=== PATIENT | male | born 1960 | race Caucasian/White ===

== ENCOUNTER 2021-12-19 15:54 | Emergency (ER) | payer BC ==
[~2021-12-19] VITALS: Ht 172.7 cm; Wt 77.0 kg
[2021-12-19] MEDS ORDERED: CIPR500S2 PO (17:35)
--- NOTE | 2021-12-19 17:36 | PHYS DOC ---
General Adult EDM: Chief Complaint: URINARY RETENTION HPI: HPI: Patient is a 61-year-old male that presents with a chief complaint of difficulty urinating. Patient states symptoms initially started this past Thursday. Patient was evaluated at an outside ER and had a Lomeli catheter placed. Patient saw his primary care physician on Thursday and had Lomeli removed. Patient states since then he is difficulty urinating has returned. Patient states he has some so she had his suprapubic discomfort but he is still able to void. Patient has been taking Flomax as prescribed. Patient is prior to arrival he talked to his primary care physician who referred patient to the ER to get a bladder scan. Patient's bladder scan resulted at 536. Discussed Lomeli placement with the patient he is declining at this time. Patient states he is just now recovering from hematuria related to placement of last Lomeli. Patient states last ER had difficulty placing the Lomeli catheter--multiple attempts eventually obtaining it with a coud. Review of Systems: Review of Systems: Constitutional: Denies fever or chills Eyes: Denies change in visual acuity HENT: Denies nasal congestion or sore throat Respiratory: Denies cough or shortness of breath Cardiovascular: Denies chest pain or edema GI: Denies abdominal pain, nausea, vomiting, bloody stools or diarrhea : Denies dysuria positive difficulty urination. Positive urinary retention Musculoskeletal: Denies back pain or joint pain Integument: Denies rash Neurologic: Denies headache, focal weakness or sensory changes Endocrine: Denies polyuria or polydipsia Lymphatic: Denies swollen glands Psychiatric: Denies depression or anxiety Physical Exam: PE: Constitutional: Well developed, well nourished, no acute distress, non-toxic appearance. [] HENT: Normocephalic, atraumatic, bilateral external ears normal, oropharynx moist, no oral exudates, nose normal. [] Eyes: PERRLA, EOMI, conjunctiva normal, no discharge. [] Neck: Normal range of motion, no tenderness, supple, no stridor. [] Cardiovascular:Heart rate regular rhythm, no murmur [] Lungs & Thorax: Bilateral breath sounds clear to auscultation [] Abdomen: Bowel sounds normal, soft, no tenderness, no masses, no pulsatile masses. [] Skin: Warm, dry, no erythema, no rash. [] Back: No tenderness, no CVA tenderness. [] Extremities: No tenderness, no cyanosis, no clubbing, ROM intact, no edema. [] Neurologic: Alert and oriented X 3, normal motor function, normal sensory function, no focal deficits noted. [] Psychologic: Affect normal, judgement normal, mood normal. [] EKG: EKG: [] Radiology/Procedures: Radiology/Procedures: [] Heart Score: C/O Chest Pain: N/A Risk Factors: Risk Factors: DM, Current or recent (<one month) smoker, HTN, HLP, family history of CAD, obesity. Risk Scores: Score 0 - 3: 2.5% MACE over next 6 weeks - Discharge Home Score 4 - 6: 20.3% MACE over next 6 weeks - Admit for Clinical Observation Score 7 - 10: 72.7% MACE over next 6 weeks - Early Invasive Strategies Course & Med Decision Making: Course & Med Decision Making Pertinent Labs and Imaging studies reviewed. (See chart for details) [] Patient does not want a Lomeli catheter. We will place patient on Cipro to treat possible prostatitis causing his difficulty to urinate. Patient is to continue his Flomax. Patient has has appointment with urologist pending. Patient advised to return to the ER if he is unable to urinate. Patient will need to return to the ER and have a Lomeli catheter placed at that time. [place] Disclaimer: Kofi Disclaimer: This electronic medical record was generated, in whole or in part, using a voice recognition dictation system. Departure Departure: Impression: Primary Impression: Urinary retention Additional Impression: Prostatitis Disposition: HOME / SELF CARE / HOMELESS Condition: STABLE Referrals: OTILIA THOMPSON MD (PCP) Patient Instructions: Urinary Retention, Acute, Male Scripts Ciprofloxacin (CIPRO) 500 Mg/5 Ml Denise..rec 500 MG PO BID, #20 [facility] Prov: JESSA HERNANDEZ I DO 12/19/21 JESSA HERNANDEZ I DO Dec 19, 2021 17:36
[2021-12-19 17:46] LABS: BACTERIA,URINE 0 /HPF (0-FEW); CLARITY,URINE CLEAR; COLOR,URINE YELLOW; GLUCOSE,URINE NEG (NEG); NITRITE,URINE NEG (NEG); SQUAMOUS EPITHELIAL CELL,UR FEW /LPF; UROBILINOGEN,URINE 0.2 mg/dL (0.2 mg/dL)
[2021-12-19 18:22] VITALS: BP 135/72
== END 2021-12-19 17:40 | disposition home or self-care (01) ==
LOC: ER 15:54
DX: N41.9 Inflammatory disease of prostate, unspecified (principal); R33.9 Retention of urine, unspecified
CPT/HCPCS: 81001; 99284

== ENCOUNTER 2021-12-20 16:39 | Emergency (ER) | payer BC ==
[~2021-12-20] VITALS: Ht 172.7 cm; Wt 80.2 kg
[~2021-12-20 16:39] MED LIST: CIPR500S2 PO
--- NOTE | 2021-12-20 19:41 | PHYS DOC ---
Past History Past Medical History: Kidney Stones (MIKE RANDOLPH) Past Surgical History: No Surgical History (MIKE RANDOLPH) Alcohol Use: None (MIKE RANDOLPH) General Adult EDM: Chief Complaint: URINARY RETENTION HPI: HPI: Patient is a 61 year old male who presents with difficulty urinating and suprapubic pain. Patient states that last week, he was on his way home from a trip to [place] when he began having difficulty urinating and suprapubic pain. He was evaluated in the emergency department. At that time, they discovered that his prostate was enlarged and placed a coud catheter. CT imaging also confirmed that he does still have a renal stone in each kidney. They were nonobstructing and are not causing him pain. Patient reports that they had difficulty placing a regular Lomeli catheter, so they had to use "the small one" (a coud). He was instructed to have the catheter removed after 2 days. He visited his primary care provider on Thursday morning, which was 2 days ago. At that time, he had been taking Flomax for a few days. His primary care prov ider, Dr. Thompson, prescribed him antibiotics for possible prostate infection causing the enlargement and obstruction. Dr. Thompson informed the patient that a urologist visits his office every other week. Patient has not received a call back informing him he has an appointment with the urologist as of yet, but his primary care doctor assured him he would be seen. Since the catheter has been removed, patient states that he is able to urinate a minimal amount about every 1/2 hour. He has decreased his oral intake of fluids significantly since having the catheter removed. Patient reports he typically drinks 8+ glasses of water per day, but has decreased to 1-2 glasses. He states his hematuria after having the catheter removed has resolved. Patient denies fever, chills, generalized weakness, dysuria, N/V/D. Patient states he was seen here in the emergency department yesterday and discussed replacement of Lomeli catheter, but he declined at that time. Today he states he is so uncomfortable that he would like the coud placed. (MIKE RANDOLPH) Review of Systems: Review of Systems: Constitutional: See HPI Eyes: Denies change in visual acuity, visual field deficits or discharge HENT: Denies ear pain, nasal congestion or sore throat Respiratory: Denies cough or shortness of breath Cardiovascular: Denies chest pain, palpitations or edema GI: See HPI : See HPI Musculoskeletal: Denies back pain or joint pain Integument: Denies rash or other skin lesion Neurologic: Denies headache, focal weakness or sensory changes (MIKE RANDOLPH) Allergies: Allergies: Allergies Coded Allergies Type Severity Reaction Last Updated Verified No Known Drug Allergies 12/20/21 No (MIKE RANDOLPH) Physical Exam: PE: Constitutional: Well developed, well nourished, no acute distress, non-toxic appearance. HENT: Normocephalic, atraumatic, bilateral external ears normal, nose normal. Eyes: EOMI, conjunctiva normal, no discharge. Neck: Normal range of motion, no stridor. Abdomen: Bowel sounds normal, soft, suprapubic tenderness without rebound or guarding, no masses, no pulsatile masses. Skin: Warm, dry, no erythema, no rash. Extremities: No cyanosis, no clubbing, ROM intact, no edema. Neurologic: Alert and oriented x4, steady and symmetrical upright gait, no focal deficits noted. (MIKE RANDOLPH) Current Patient Data: Labs: Laboratory Tests Test 12/20/21 19:57 Urine Collection Type Unknown Urine Color Yellow Urine Clarity Clear Urine pH 6.0 Urine Specific [place] 1.025 Urine Protein Neg (NEG-TRACE) Urine Glucose (UA) Neg mg/dL (NEG) Urine Ketones (Stick) Neg mg/dL (NEG) Urine Blood Small (NEG) Urine Nitrite Neg (NEG) Urine Bilirubin Neg (NEG) Urine Urobilinogen Dipstick 0.2 mg/dL (0.2 mg/dL) Urine Leukocyte Esterase Neg (NEG) Urine RBC 6-10 /HPF (0-2) Urine WBC 0 /HPF (0-4) Urine Squamous Epithelial Cells Few /LPF Urine Transitional Epithelial Cells /LPF Urine Bacteria Few /HPF (0-FEW) Urine Mucus Slight /LPF Vital Signs: Vital Signs Date Time Temp Pulse Resp B/P (MAP) Pulse Ox O2 Delivery O2 Flow Rate FiO2 12/20/21 16:39 97.7 82 18 160/66 (97) 98 Room Air (MIKE RANDOLPH) Radiology/Procedures: Radiology/Procedures: >800cc urine on bladder scan (MIKE RANDOLPH) Heart Score: C/O Chest Pain: No (MIKE RANDOLPH) Course & Med Decision Making: Course & Med Decision Making Pertinent Labs and Imaging studies reviewed. (See chart for details) Patient is a 61-year-old male who returns to the emergency department today after refusing urinary catheter placement yesterday. He does request urinary catheter placement today secondary to his increased suprapubic pain and lack of ability to urinate. Patient was given a 14 coud with use of Glydo. Total of 1000cc urine expelled in catheter bag prior to discharge. Had a discussion with the patient regarding necessity of urology follow-up. Advised patient to continue taking antibiotics and Flomax prescribed by his primary care provider. Patient should call his PCP on Thursday morning to obtain a urology appointment with the provider who visits his PCPs office. If he is unable to get an appointment with his urologist this week, he is instructed to call Dr. Blackubrn, who was contacted formation is included on the discharge paperwork. All of the patient's questions were answered. He expresses gratitude for the use of Glydo during catheter placement, as his first catheter placement was very uncomfortable. Patient understands and is agreeable to discharge plan. (MIKE RANDOLPH) Course & Med Decision Making Did not see or evaluate patient. Did not discuss patient with PA. Generally agree with PAs work-up and disposition per note (HILARY MCGREGOR MD) Dragon Disclaimer: Dragon Disclaimer: This electronic medical record was generated, in whole or in part, using a voice recognition dictation system. (MIKE RANDOLPH) Departure Departure: Impression: Primary Impression: Hyperplasia of prostate with urinary obstruction Additional Impression: Urinary catheter in place Disposition: HOME / SELF CARE / HOMELESS Condition: IMPROVED Referrals: OTILIA THOMPSON MD (PCP) ERAN BLACKBURN MD Patient Instructions: Lomeli Catheter Care, Adult Additional Instructions: EMERGENCY DEPARTMENT GENERAL DISCHARGE INSTRUCTIONS Thank you for coming to [facility] (ED) today and trusting us with you care. We trust that you had a positive experience in our Emergency Department. If you wish to speak to the department management, you may call the director at [phone]. YOUR FOLLOW UP INSTRUCTIONS ARE FOLLOWS: 1. Follow up with your primary care doctor. If you do not have a primary doctor, please ask for a resource list of physicians or clinics that may be able to assist you with follow up care. 2. The emergency provider has interpreted your imaging studies, if any were ordered. The radiology youth career specialist also reviewed them. If there is a change in the findings, you will be notified in 48 hours when at all possible. 3. If a lab test or culture has been done, your results will be reviewed and you will be notified if you need a change in treatment. 4. Follow instructions verbalized to you and refer to the printouts if needed. ADDITIONAL INSTRUCTIONS AND INFORMATION: 1. Your care today has been supervised by a physician who is specially trained in emergency care. Many problems require more than one evaluation for a complete diagnosis and treatment. We recommend that you schedule your follow up appointment as recommended to ensure complete treatment of you illness or injury. If you are unable to obtain follow up care and continue to have a problem, or if your condition worsens, we recommend that you return to the ED. 2. We are not able to safely determine your condition over the phone nor are we able to give sound medical advice over the phone. For these safety reasons, if you call for medical advice we will ask you to come to the ED for further lavinia luation. 3. If you have any questions regarding these discharge instructions please call the ED at [phone]. SAFETY INFORMATION: In the interest of safety, wellness, and injury prevention; we encourage you to wear your seat belt, if you smoke; quite smoking, and we encourage family to use a protective helmet for bicycling and other sporting events that present an increased risk for head injury. IF YOUR SYMPTOMS WORSEN OR NEW SYMPTOMS DEVELOP, OR YOU HAVE CONCERNS ABOUT YOUR CONDITION; OR IF YOUR CONDITION WORSENS WHILE YOU ARE WAITING FOR YOUR FOLLOW UP APPOINTMENT; EITHER CONTACT YOUR PRIMARY CARE DOCTOR, THE PHYSICIAN WHOSE NAME AND NUMBER YOU WERE GIVEN, OR RETURN TO THE ED IMMEDIATELY. MIKE RANDOLPH Dec 20, 2021 19:41 HILARY MCGREGOR MD Dec 20, 2021 22:26
[2021-12-20] MEDS ORDERED: LIDOCAINE 2% JELLY 6ML IN APPLICATOR. MM ONE (20:00)
[2021-12-20 20:41] LABS: CLARITY,URINE CLEAR; COLOR,URINE YELLOW; GLUCOSE,URINE NEG (NEG)
[2021-12-20 20:42] LABS: BACTERIA,URINE FEW /HPF (0-FEW); NITRITE,URINE NEG (NEG); SQUAMOUS EPITHELIAL CELL,UR FEW /LPF; UROBILINOGEN,URINE 0.2 mg/dL (0.2 mg/dL); WBC,URINE 0 /HPF (0-4)
[2021-12-20 21:40] VITALS: BP 148/68
== END 2021-12-20 21:48 | disposition home or self-care (01) ==
LOC: ER 16:39
DX: N40.1 Benign prostatic hyperplasia with lower urinary tract symptoms (principal); N13.8 Other obstructive and reflux uropathy; Z87.442 Personal history of urinary calculi
CPT/HCPCS: 51702; 81001; 99284

== ENCOUNTER 2021-12-23 09:17 | Emergency (ER) | payer BC ==
[~2021-12-23] VITALS: Ht 172.7 cm; Wt 80.0 kg
[2021-12-23 10:02] VITALS: BP 142/80
--- NOTE | 2021-12-23 10:17 | PHYS DOC ---
Past History Past Medical History: Kidney Stones (MINH SERRANO APRN) Past Surgical History: No Surgical History (MINH SERRANO APRN) Alcohol Use: None (MINH SERRANO APRN) General Adult EDM: Chief Complaint: URINE CATHETER PROBLEM HPI: HPI: Patient is a 61-year-old male who presents to the emergency department for urinary catheter change. Patient reports that 1 week ago he had a CT scan of his abdomen and pelvis due to inability to urinate which showed an enlarged prostate and bilateral kidney stones within the kidney that were nonobstructing. He reports that following that, a catheter was placed and he was to have the catheter removed in 2 days. He did have the catheter removed after 2 days but presented to the emergency department on and Thursday. On Thursday patient did agree to have a Lomeli placed and did have urine output. Patient reports that he followed up with his primary care provider, Dr. Thompson this morning because he was concerned that there may be an issue with his leg bag. Patient reports that there is urine in his tube but it will not flow into his leg bag. He reports that he wants his leg bag replaced. He states that Dr. Thompson in the office this morning "played with" the connection between the tube in the leg bag and the urine did not drain into the leg bag so he believes that there is an issue with the connection between the 2. Patient reports that he also got a PSA checked in the office today. He was discharged home 1 week ago with Flomax and Cipro. Patient reports that he continues to take these medications. He states that he has a urology appointment on Thursday. Patient denies hematuria, dysuria, fever, nausea, vomiting, abdominal pain, flank pain. (MINH SERRANO APRN) Review of Systems: Review of Systems: Constitutional: See HPI GI: See HPI : See HPI Musculoskeletal: See HPI (MINH SERRANO APRN) Allergies: Allergies: Allergies Coded Allergies Type Severity Reaction Last Updated Verified No Known Drug Allergies 12/23/21 No (MINH SERRANO APRN) Physical Exam: PE: Constitutional: Well developed, well nourished, no acute distress, non-toxic appearance. [] HENT: Normocephalic, atraumatic, bilateral external ears normal, oropharynx moist, no oral exudates, nose normal. [] Eyes: PERRL, EOMI, conjunctiva normal, no discharge. [] Neck: Normal range of motion, no stridor Cardiovascular:Heart rate regular rhythm, no murmur [] Lungs & Thorax: Bilateral breath sounds clear to auscultation [] Abdomen: Bowel sounds normal, soft, no tenderness,no guarding, no rigidity, no masses, no pulsatile masses. [] Skin: Warm, dry, no erythema, no rash. [] Back: No tenderness, no CVA tenderness. [] Extremities: No tenderness, no cyanosis, no clubbing, ROM intact, no edema. [] Neurologic: Alert and oriented X 3, normal motor function, normal sensory function, no focal deficits noted. [] Psychologic: Affect normal, judgement normal, mood normal. [] (MINH SERRANO APRN) EKG: EKG: [] (MINH SERRANO APRN) Radiology/Procedures: Radiology/Procedures: [] (MINH SERRANO APRN) Heart Score: C/O Chest Pain: N/A Risk Factors: Risk Factors: DM, Current or recent (<one month) smoker, HTN, HLP, family history of CAD, obesity. Risk Scores: Score 0 - 3: 2.5% MACE over next 6 weeks - Discharge Home Score 4 - 6: 20.3% MACE over next 6 weeks - Admit for Clinical Observation Score 7 - 10: 72.7% MACE over next 6 weeks - Early Invasive Strategies (MINH SERRANO APRN) Course & Med Decision Making: Course & Med Decision Making Pertinent Labs and Imaging studies reviewed. (See chart for details) Patient presents for urine catheter change. Patient reports that there is urine in his tube but it will not flow into his leg bag. He reports that he wants his leg bag replaced. He states that Dr. Thompson in the office this morning "played with" the connection between the tube in the leg bag and the urine did not drain into the leg bag so he believes that there is an issue with the connection between the 2. Patient does not have any fevers, urinary complaints, nausea/vomiting or abdominal pain. I bladder scanned patient and had only 36 mils of urine noted. Patient does have urine noted in his tube but as patient stated, it is not flowing into his leg bag. The tube was flushed in the emergency department and it did start to drain but had to manipulate with connection between the tube and the leg bag for it to drain to gravity. Maria Luisa cornell's leg bag was replaced in the emergency department today. He has an appointment with urology on Thursday. I advised him to make sure that he keeps this appointment and continue to take his Cipro and Flomax. I told patient that if he continues to have issues with this catheter then he should return to the emergency department or go to [facility] where they do have urology coverage. I discussed with patient all findings and diagnostic testing as well as the need to follow-up with PCP for further evaluation and treatment or return to the ER if any new or worsening symptoms. Strict return precautions were also discussed at length. Patient voiced understanding and agreement with the plan. Patient is hemodynamically stable at the time of disposition. (MINH SERRANO APRN) Course & Med Decision Making Did not see or evaluate patient. Did not discuss patient with INTERMODAL TRUCK DRIVER. Generally agree with INTERMODAL TRUCK DRIVER's work-up and disposition per note (HILARY MCGREGOR MD) Dragon Disclaimer: Dragon Disclaimer: This electronic medical record was generated, in whole or in part, using a voice recognition dictation system. (MINH SERRANO APRN) Departure Departure: Impression: Primary Impression: Urinary catheter change required Disposition: HOME / SELF CARE / HOMELESS Condition: GOOD Referrals: OTILIA THOMPSON MD (PCP) Patient Instructions: Indwelling Urinary Catheter Care-Brief, Urinary Reten tion, Acute, Male, [id number] Additional Instructions: You were seen in the emergency department today for urinary catheter change. We changed out the leg bag on your catheter today. Please monitor for urine output. Increase your fluids. Continue to take your Cipro and Flomax as previously prescribed. Please make sure that you follow-up with the urologist on Thursday. Return to this emergency department or go to [facility] emergency department if you notice decreased urine output, pain with urination, blood in your urine, nausea/vomiting, high fevers refractory to treatment, abdominal pain, back pain or any new or worsening concerns. MINH SERRANO APRN Dec 23, 2021 10:17 HILARY MCGREGOR MD Dec 23, 2021 10:46
== END 2021-12-23 10:28 | disposition home or self-care (01) ==
LOC: ER 09:17
DX: Z46.6 Encounter for fitting and adjustment of urinary device (principal); Z87.442 Personal history of urinary calculi
CPT/HCPCS: 99284